=== PATIENT | female | born 1995 | race Caucasian/White ===

== ENCOUNTER → 2018-08-03 | Outpatient (REF) | payer OTHER | LOC: M LAB LCGH 15:10 | PROVIDERS: ATTEND Nurse Practitioner Adult Health | DX: Z12.4 Encounter for screening for malignant neoplasm of cervix (principal) ==

== ENCOUNTER 2021-04-07 18:43 | Emergency (ER) | payer OTHER, SELFPAY ==
[~2021-04-07] VITALS: Ht 170.2 cm; Wt 106.6 kg
[2021-04-07 18:46] VITALS: BP 166/94
[2021-04-07] MEDS ORDERED: VENL150C43 (19:30)
[2021-04-07] MEDS ORDERED: ESTA0.25 (19:30)
[2021-04-07] MEDS ORDERED: EFFE75CA2 PO (20:04)
--- OUTSIDE RECORDS SUMMARY | 2021-04-07 20:30 | CCD ---
Author Author Brandi Sena Organization [facility] Address Unknown Phone Unavailable Care Team Providers Care Mailing Section Clerk Name Role Phone Imani Sena PCP Unavailable Allergies, Adverse Reactions, Alerts Allergy Substance Code C odeSystem Reaction Severity Critic ality Status Start Date nkda Moderate Active Medications Medication Medication Code Medication CodeSystem Start Date Stop Date Route Dose Status Fill Instructions Vyvanse 689320 RxNorm 2015-10-29 2015-12-26 oral 40 mg capsule completed for 30 day(s) Lexapro 441500 RxNorm 2016-01-01 2017-10-11 oral 20 mg tablet completed for 30 day(s) Rexulti 8110173 RxNorm 2017-08-22 2017-09-29 oral 2 mg tablet completed buspirone 586036 RxNorm 2017-10-11 2017-10-27 oral 7.5 mg tablet completed for 30 day(s) Vyvanse 457973 RxNorm 2016-01-01 2016-02-29 oral 50 mg capsule completed for 30 day(s) Zoloft 180639 RxNorm 2018-09-26 2019-07-25 oral 25 mg tablet completed hydroxyzine HCl 681750 R xNorm 2019-01-02 2019-02-01 or al 10 mg tablet completed for 30 day(s) Effexor XR 425015 RxNorm 2019-10-05 2019-11-04 oral 150 mg capsule,extended release 24hr completed for 30 day(s) Vyvanse 209066 RxNorm 2016-06-30 2016-10-09 oral 40 mg capsule completed for 30 day(s) Effexor XR 858329 RxNorm 2019-11-01 2019-12-01 oral 37.5 mg capsule,extended release 24hr active for 30 day(s) Rexulti 4707920 RxNorm 2017-06-07 2017-06-21 oral 1 mg tablet completed Rexulti 0931625 RxNorm 2017-10-27 2017-11-03 oral 0.5 mg tablet completed for 7 day(s) Vyvanse 807077 RxNorm 2016-03-02 2016-03-11 oral 50 mg capsule completed for 30 day(s) Vyvanse 507657 RxNorm 2016-10-12 2016-12-10 oral 40 mg capsule completed for 30 day(s) Vyvanse 776442 RxNorm 2016-12-21 2017-03-14 oral 30 mg capsule completed for 30 day(s) Vyvanse 979042 RxNorm 2016-03-11 2016-05-07 oral 60 mg capsule completed for 30 day(s) Vyvanse 551344 RxNorm 2017-09-29 2017-10-27 oral 50 mg capsule completed for 30 day(s) hydroxyzine HCl 264410 R xNorm 2019-05-08 2019-06-07 or al 10 mg tablet completed for 30 day(s) Vyvanse 778052 RxNorm 2017-06-07 2017-08-12 oral 40 mg capsule completed for 30 day(s) Rexulti 9389751 RxNorm 2017-09-29 2017-10-27 oral 3 mg tablet completed hydroxyzine HCl 261090 R xNorm 2019-07-25 2019-08-24 or al 25 mg tablet completed for 30 day(s) Effexor XR 989154 RxNorm 2018-02-01 2018-02-16 oral 75 mg capsule,extended release 24hr completed for 15 day(s) Xanax 630636 RxNorm 2018-06-28 2018-07-28 oral 0.5 mg tablet completed for 30 day(s) Effexor XR 910460 RxNorm 2018-02-01 2018-04-12 oral 150 mg capsule,extended release 24hr completed alprazolam 712201 RxNorm 2018-02-01 2018-03-03 oral 0.5 mg tablet completed for 30 day(s) hydroxyzine HCl 327050 R xNorm 2019-04-05 2019-05-05 or al 10 mg tablet completed for 30 day(s) Vyvanse 602277 RxNorm 2016-05-07 2016-06-30 oral 50 mg capsule completed for 30 day(s) hydroxyzine HCl 466234 R xNorm 2018-10-31 2018-11-30 or al 10 mg tablet completed for 30 day(s) Effexor XR 982914 RxNorm 2019-11-12 2019-12-12 oral 150 mg capsule,extended release 24hr active for 30 day(s) Effexor XR 813778 RxNorm 2019-05-08 2019-06-07 oral 150 mg capsule,extended release 24hr completed for 30 day(s) Xanax 351450 RxNorm 2018-08-01 2018-08-31 oral 0.5 mg tablet completed for 30 day(s) Rexulti 4563774 RxNorm 2017-10-27 2017-11-03 oral 2 mg tablet completed for 7 day(s) Effexor XR 946246 RxNorm 2019-01-30 2019-03-01 oral 150 mg capsule,extended release 24hr completed for 30 day(s) hydroxyzine HCl 797930 R xNorm 2019-09-27 2019-11-26 or al 25 mg tablet completed for 30 day(s) Vyvanse 602525 RxNo 2017-03-14 2017-04-13 oral 40 mg capsule completed for 30 day(s) Effexor XR 734215 RxNorm 2019-03-01 2019-04-30 oral 150 mg capsule,extended release 24hr completed for 30 day(s) Xanax 306087 RxNorm 2017-10-27 2017-12-08 oral 1 mg tablet completed for 30 day(s) Rexulti 7662520 RxNorm 2017-06-21 2017-08-22 oral 1 mg tablet completed Xanax 303899 RxNorm 2017-12-08 2018-01-27 oral 0.5 mg tablet completed for 30 day(s) Effexor XR 362480 RxNorm 2019-08-27 2019-09-26 oral 37.5 mg capsule,extended release 24hr completed for 30 day(s) Effexor XR 910068 RxNorm 2019-09-27 2019-10-27 oral 37.5 mg capsule,extended release 24hr completed for 30 day(s) alprazolam 555354 RxNorm 2018-05-29 2018-06-08 oral 0.5 mg tablet completed for 10 day(s) Effexor XR 306945 RxNorm 2018-04-12 2019-01-29 oral 150 mg capsule,extended release 24hr completed Vyvanse 687208 RxNorm 2017-01-17 2017-01-17 oral 40 mg capsule completed for 30 day(s) Rexulti 8349924 RxNorm 2017-10-27 2017-11-03 oral 1 mg tablet completed for 7 day(s) Lexapro 937280 RxNorm 2015-10-29 2016-01-01 oral 20 mg 1 tablet once a day completed Take 1 tablet by mouth once a day for 30 day(s) Vyvanse 152124 RxNorm 2017-08-22 2017-09-21 oral 50 mg capsule completed for 30 day(s) alprazolam 191861 RxNorm 2018-09-01 2018-09-26 oral 0.5 mg tablet completed for 30 day(s) Effexor XR 860174 RxNorm 2017-10-27 2018-02-01 oral 37.5 mg capsule,extended release 24hr completed for 30 day(s) Effexor XR 249555 RxNorm 2019-06-07 2019-09-27 oral 150 mg capsule,extended release 24hr completed for 30 day(s) Problems Problem Name Code CodeSy stem Alternate Code Alternate CodeSystem Start Date End Date Status Narrative Other specified anxiety disorder [id number] SNOMED-CT 2015-10-07 Active Recurrent depressive disorder, current episode modera te [id number] SNOMED-CT 2015-10-07 Active Cannabis abuse, uncomplicated 472914900 SNOMED-CT 2015-10-07 Active Other eating disorders 62620220 SNOMED-CT 2015-10-31 Active Relevant diagnostic tests/laboratory data Narrative No Information Procedures Procedure Name Code Code System Target Site Date of Procedure Status Service Delivery Location Device Cod e Device Name Device UID Psychotherapy, 45 minutes with patient [id number] SNOMED-CT () 2015-10-[address], [id number] Psychotherapy, 45 minutes with patient [id number] SNOMED-CT () 2015-10-08 completed [facility] , , , Psychotherapy, 45 minutes with patient [id number] SNOMED-CT () 2015-10-15 completed [facility] , , , Psychotherapy, 45 minutes with patient [id number] SNOMED-CT () 2015-10-22 completed [facility] , , , Psychotherapy, 45 minutes with patient [id number] SNOMED-CT () 2015-12-03 completed [facility] , , , Psychotherapy, 45 minutes with patient [id number] SNOMED-CT () 2016-04-08 completed [facility] [address], [place], [id number] Psychotherapy, 45 minutes with patient [id number] SNOMED-CT () 2020-10-02 completed [facility] [address], [place], [id number] Psychotherapy, 45 minutes with patient [id number] SNOMED-CT () 2020-10-14 completed [facility] [address], [place], [id number] Psychotherapy, 45 minutes with patient [id number] SNOMED-CT () 2020-11-17 completed [facility] [address], [place], [id number] Psychotherapy, 45 minutes with patient [id number] SNOMED-CT () 2021-01-27 completed [facility] [address], [place], 556[address] [id number] Psychotherapy, 45 minutes with patient [id number] SNOMED-CT () 2021-02-24 completed [facility] [address], [place], [id number] [id number] Psychotherapy, 45 minutes with patient [id number] SNOMED-CT () 2020-03-12 completed [facility] [address], [place], [id number] [id number] Psychotherapy, 45 minutes with patient [id number] SNOMED-CT () 2020-04-07 completed [facility] [address], [place], [id number] [id number] Psychotherapy, 45 minutes with patient [id number] SNOMED-CT () 2020-05-12 completed [facility] [address], [place], 419878813 [id number] Psychotherapy, 45 minutes with patient [id number] SNOMED-CT () 2020-06-18 completed [facility] [address], [place], 673545824 [id number] Psychotherapy, 45 minutes with patient [id number] SNOMED-CT () 2020-07-15 completed [facility] [address], [place], [id number] Psychotherapy, 45 minutes with patient [id number] SNOMED-CT () 2020-08-12 completed [facility] [address], [place], 573518586 [id number] Psychotherapy, 45 minutes with patient [id number] SNOMED-CT () 2019-12-03 completed [facility] [address], [place], [id number] Psychotherapy, 45 minutes with patient [id number] SNOMED-CT () 2019-12-17 completed [facility] [address], [place], 443966141 [id number] Psychotherapy, 45 minutes with patient [id number] SNOMED-CT () 2019-12-31 completed [facility] [address], [place], 556896124 [id number] Psychotherapy, 45 minutes with patient [id number] SNOMED-CT () 2020-01-15 completed [facility] [address], [place], 731842358 [id number] Psychotherapy, 45 minutes with patient [id number] SNOMED-CT () 2020-01-28 completed [facility] [address], [place], 4782[address]12 [id number] Psychotherapy, 45 minutes with patient [id number] SNOMED-CT () 2020-02-19 completed [facility] [address], [place], 340976381 [id number] Psychotherapy, 45 minutes with patient [id number] SNOMED-CT () 2019-03-01 completed [facility] [address], [place], [id number] Psychotherapy, 45 minutes with patient [id number] SNOMED-CT () 2019-05-08 completed [facility] [address], [place], [id number] [id number] Psychotherapy, 45 minutes with patient [id number] SNOMED-CT () 2019-05-24 completed [facility] [address], [place], 003425275 [id number] Psychotherapy, 45 minutes with patient [id number] SNOMED-CT () 2019-09-18 completed [facility] [address], [place], 951025274 [id number] Psychotherapy, 45 minutes with patient [id number] SNOMED-CT () 2019-10-12 completed [facility] [address], [place], 343222425 [id number] Psychotherapy, 45 minutes with patient [id number] SNOMED-CT () 2019-10-22 completed [facility] [address], [place], 399019437 [phone] Psychotherapy, 45 minutes with patient [id number] SNOMED-CT () 2017-10-14 completed [facility] [address], [place], 879781116 [id number] Psychotherapy, 45 minutes with patient [id number] SNOMED-CT () 2017-10-28 completed [facility] [address], [place], 376916919 [id number] Psychotherapy, 45 minutes with patient [id number] SNOMED-CT () 2017-12-27 completed [facility] [address], [place], 983875553 [id number] Psychotherapy, 45 minutes with patient [id number] SNOMED-CT () 2018-02-13 completed [facility] [address], [place], 244404287 [id number] Psychotherapy, 45 minutes with patient [id number] SNOMED-CT () 2018-10-31 completed [facility] [address], [place], 792656775 [id number] Psychotherapy, 45 minutes with patient [id number] SNOMED-CT () 2018-12-29 completed [facility] [address], [place], 611244656 [id number] Psychotherapy, 45 minutes with patient [id number] SNOMED-CT () 2017-07-05 completed [facility] [address], [place], 099479195 [id number] Psychotherapy, 45 minutes with patient [id number] SNOMED-CT () 2017-08-24 completed [facility] [address], [place], 791388078 [id number] Psychotherapy, 45 minutes with patient [id number] SNOMED-CT () 2017-09-08 completed [facility] [address], [place], 212654575 [id number] Psychotherapy, 45 minutes with patient [id number] SNOMED-CT () 2017-09-23 completed [facility] [address], [place], 096865450 [id number] Psychotherapy, 45 minutes with patient [id number] SNOMED-CT () 2017-09-30 completed [facility] [address], [place], 450775573 [id number] Psychotherapy, 45 minutes with patient [id number] SNOMED-CT () 2017-10-11 completed [facility] [address], [place], 305341243 [id number] Psychotherapy, 45 minutes with patient [id number] SNOMED-CT () 2017-02-02 completed [facility] [address], [place], 632314389 [id number] Psychotherapy, 45 minutes with patient [id number] SNOMED-CT () 2017-02-28 completed [facility] [address], [place], 547749382 [id number] Psychotherapy, 45 minutes with patient [id number] SNOMED-CT () 2017-03-14 completed [facility] [address], [place], 671399595 [id number] Psychotherapy, 45 minutes with patient [id number] SNOMED-CT () 2017-03-28 completed [facility] [address], [place], 589629268 [phone] Psychotherapy, 45 minutes with patient [id number] SNOMED-CT () 2017-04-11 completed [facility] [address], [place], 049183584 [phone] Psychotherapy, 45 minutes with patient [id number] SNOMED-CT () 2017-06-21 completed [facility] [address], [place], 641715779 [phone] Psychotherapy, 45 minutes with patient [id number] SNOMED-CT () 2016-07-07 completed [facility] , , , Psychotherapy, 45 minutes with patient [id number] SNOMED-CT () 2016-07-21 completed [facility] , , , Psychotherapy, 45 minutes with patient [id number] SNOMED-CT () 2016-08-17 completed [facility] [address], [place], 448622279 [phone] Psychotherapy, 45 minutes with patient [id number] SNOMED-CT () 2016-08-31 completed [facility] [address] [place], [place], 588719546 [phone] Psychotherapy, 45 minutes with patient [id number] SNOMED-CT () 2016-10-08 completed [facility] [address], [place], 222465502 [phone] Psychotherapy, 45 minutes with patient [id number] SNOMED-CT () 2017-01-20 completed [facility] [address], [place], 821252627 [id number] Psychotherapy, 45 minutes with patient [id number] SNOMED-CT () 2016 completed [facility] [address] [place], [place], [id number] [id number] Psychotherapy, 45 minutes with patient [id number] SNOMED-CT () 2016-02-04 completed [facility] [address] [place], [place], 766828752 [phone] Psychotherapy, 45 minutes with patient [id number] SNOMED-CT () 2016-05-07 completed [facility] [address] [place] [address], [id number] [phone] Psychotherapy, 45 minutes with patient [id number] SNOMED-CT () 2016-06-23 completed [facility] [address] [place], [place], [id number] [id number] Psychotherapy, 45 minutes with patient [id number] SNOMED-CT () 2016-06-16 completed [facility] [address] [place], [place], 401777902 [phone] Psychotherapy, 45 minutes with patient [id number] SNOMED-CT () 2016-03-11 completed [facility] [address] [place], [place], 363275971 [id number] Initial Psychiatric Evaluation [id number] SNOMED-CT () 2015-10-29 completed [facility] [address] [place], [place], 025390988 [phone] Health Monitoring / Risk Reduction Counseling - Brief [id number] SNOMED-CT () 2018-10-[address], [id number] [id number] Health Monitoring / Risk Reduction Counseling - Interm ediate [id number] SNOMED-CT () 2015-10-[address], [id number] [id number] Est. Patient - E&M Intermediate [id number] SNOMED-CT () 2015-11-[address], [id number] [id number] Est. Patient - E&M Intermediate [id number] SNOMED-CT () 2016-01-[address], [id number] [phone] Est. Patient - E&M Intermediate [id number] SNOMED-CT () 2016-03-[address], [id number] [id number] Est. Patient - E&M Intermediate [id number] SNOMED-CT () 2016-04-[address], [id number] [phone] Est. Patient - E&M Intermediate [id number] SNOMED-CT () 2016-05-[address], [id number] [id number] Est. Patient - E&M Intermediate [id number] SNOMED-CT () 2016-06-[address], [id number] Est. Patient - E&M Intermediate [id number] SNOMED-CT () 2018-10-[address], [id number] [phone] Est. Patient - E&M Intermediate [id number] SNOMED-CT () 2018-12-[address], [id number] [id number] Est. Patient - E&M Intermediate [id number] SNOMED-CT () 2019-03-[address], [id number] [id number] Est. Patient - E&M Intermediate [id number] SNOMED-CT () 2019-04-[address], [id number] [id number] Est. Patient - E&M Intermediate [id number] SNOMED-CT () 2017-03-[address], [id number] Est. Patient - E&M Intermediate [id number] SNOMED-CT () 2017-06-[address], [id number] [id number] Est. Patient - E&M Intermediate [id number] SNOMED-CT () 2017-06-[address], [id number] [phone] Est. Patient - E&M Intermediate [id number] SNOMED-CT () 2017-09-[address], [phone] Est. Patient - E&M Intermediate [id number] SNOMED-CT () 2017-12-[address], [id number] [id number] Est. Patient - E&M Intermediate [id number] SNOMED-CT () 2018-04-[address], [id number] Est. Patient - E&M Intermediate [id number] SNOMED-CT () 2016-07-[address], [id number] Est. Patient - E&M Intermediate [id number] SNOMED-CT () 2016-09-[address], [id number] [id number] Est. Patient - E&M Intermediate [id number] SNOMED-CT () 2016-10-[address], [id number] [phone] Est. Patient - E&M Intermediate [id number] SNOMED-CT () 2016-11-[address], [id number] [phone] Est. Patient - E&M Intermediate [id number] SNOMED-CT () 2016-12-[address], [id number] [id number] Est. Patient - E&M Intermediate [id number] SNOMED-CT () 2017-02-[address], [id number] [id number] Est. Patient - E&M Brief [id number] SNOMED-CT () 2016-06-[address], [id number] [phone] Est. Patient - E&M Brief [id number] SNOMED-CT () 2018-09-[address], [id number] [phone] Est. Patient - E&M Brief [id number] SNOMED-CT () 2019-01-[address], [id number] [id number] Est. Patient - E&M Brief [id number] SNOMED-CT () 2019-01-[address], [id number] [phone] Est. Patient - E&M Brief [id number] SNOMED-CT () 2019-05-[address], [id number] [id number] Est. Patient - E&M Brief [id number] SNOMED-CT () 2019-07-[address], [id number] [id number] Est. Patient - E&M Brief [id number] SNOMED-CT () 2019-08-[address], [id number] [phone] Est. Patient - E&M Brief [id number] SNOMED-CT () 2019-10-[address], [id number] [phone] Est. Patient - E&M Brief [id number] SNOMED-CT () 2019-12-[address], [id number] Est. Patient - E&M Brief [id number] SNOMED-CT () 2020-04-[address], [id number] [phone] Est. Patient - E&M Expanded [id number] SNOMED-CT () 2017-08-[address], [id number] [phone] Est. Patient - E&M Expanded [id number] SNOMED-CT () 2017-10-[address], [id number] [phone] Est. Patient - E&M Expanded [id number] SNOMED-CT () 2017-10-[address], [id number] [phone] Est. Patient - E&M Expanded [id number] SNOMED-CT () 2018-02-[address], [id number] [phone] Est. Patient - E&M Expanded [id number] SNOMED-CT () 2018-06-[address], [id number] [phone] Est. Patient - E&M Expanded [id number] SNOMED-CT () 2018-08-[address], [id number] [id number] Est. Patient - E&M Expanded [id number] SNOMED-CT () 2020-07-[address], [id number] [phone] Est. Patient - E&M Expanded [id number] SNOMED-CT () 2020-09-[address], [id number] [phone] Individual Psychotherapy [id number] SNOMED-CT () 2016-02-[address], [id number] [id number] Individual Psychotherapy [id number] SNOMED-CT () 2016-05-[address], [id number] [phone] Individual Psychotherapy [id number] SNOMED-CT () 2017-06-[address], [id number] [id number] Individual Psychotherapy [id number] SNOMED-CT () 2017-10-[address], [id number] [id number] Individual Psychotherapy [id number] SNOMED-CT () 2017-11-[address], [id number] [phone] Individual Psychotherapy [id number] SNOMED-CT () 2018-01-[address], [id number] [id number] Individual Psychotherapy [id number] SNOMED-CT () 2019-11-[address], [id number] [id number] Individual Psychotherapy [id number] SNOMED-CT () 2018-06-[address], [id number] [id number] Individual Psychotherapy [id number] SNOMED-CT () 2018-06-[address], [id number] [id number] Individual Psychotherapy [id number] SNOMED-CT () 2018-09-[address], [id number] [id number] Individual Psychotherapy [id number] SNOMED-CT () 2019-01-[address], [id number] [phone] Individual Psychotherapy [id number] SNOMED-CT () 2019-04-[address], [id number] [phone] Individual Psychotherapy [id number] SNOMED-CT () 2019-04-[address], [id number] [phone] Individual Psychotherapy [id number] SNOMED-CT () 2015-10-[address], [id number] [phone] Individual Psychotherapy [id number] SNOMED-CT () 2015-10-08 completed [facility] , , , Individual Psychotherapy [id number] SNOMED-CT () 2015-10-15 completed [facility] , , , Individual Psychotherapy [id number] SNOMED-CT () 2015-10-22 completed [facility] , , , Individual Psychotherapy [id number] SNOMED-CT () 2015-12-03 completed [facility] , , , Individual Psychotherapy [id number] SNOMED-CT () 2016-04-[address], [id number] [phone] Individual Psychotherapy [id number] SNOMED-CT () 2020-10-[address], [id number] [id number] Individual Psychotherapy [id number] SNOMED-CT () 2020-10-[address], [id number] [id number] Individual Psychotherapy [id number] SNOMED-CT () 2020-11-[address], [id number] [phone] Individual Psychotherapy [id number] SNOMED-CT () 2021-01-[address], [id number] [id number] Individual Psychotherapy [id number] SNOMED-CT () 2021-02-[address], [id number] Individual Psychotherapy [id number] SNOMED-CT () 2020-03-[address], [id number] Individual Psychotherapy [id number] SNOMED-CT () 2020-04-[address], [id number] [id number] Individual Psychotherapy [id number] SNOMED-CT () 2020-05-[address], [id number] [phone] Individual Psychotherapy [id number] SNOMED-CT () 2020-06-[address], [id number] [phone] Individual Psychotherapy [id number] SNOMED-CT () 2020-07-[address], [id number] [phone] Individual Psychotherapy [id number] SNOMED-CT () 2020-08-[address], [id number] [id number] Individual Psychotherapy [id number] SNOMED-CT () 2019-12-[address], [id number] [id number] Individual Psychotherapy [id number] SNOMED-CT () 2019-12-[address], [id number] [phone] Individual Psychotherapy [id number] SNOMED-CT () 2019-12-[address], [id number] Individual Psychotherapy [id number] SNOMED-CT () 2020-01-[address], [id number] [id number] Individual Psychotherapy [id number] SNOMED-CT () 2020-01-[address], [id number] [phone] Individual Psychotherapy [id number] SNOMED-CT () 2020-02-[address], [id number] [id number] Individual Psychotherapy [id number] SNOMED-CT () 2019-03-[address], [id number] [id number] Individual Psychotherapy [id number] SNOMED-CT () 2019-05-[address], [id number] Individual Psychotherapy [id number] SNOMED-CT () 2019-05-[address], [id number] [phone] Individual Psychotherapy [id number] SNOMED-CT () 2019-09-[address], [id number] [id number] Individual Psychotherapy [id number] SNOMED-CT () 2019-10-[address], [id number] [id number] Individual Psychotherapy [id number] SNOMED-CT () 2019-10-[address], [id number] [id number] Individual Psychotherapy [id number] SNOMED-CT () 2017-10-[address], [id number] [phone] Individual Psychotherapy [id number] SNOMED-CT () 2017-10-[address], [id number] [id number] Individual Psychotherapy [id number] SNOMED-CT () 2017-12-[address], [id number] Individual Psychotherapy [id number] SNOMED-CT () 2018-02-[address], [id number] Individual Psychotherapy [id number] SNOMED-CT () 2018-10-[address], [id number] [id number] Individual Psychotherapy [id number] SNOMED-CT () 2018-12-[address], [id number] [id number] Individual Psychotherapy [id number] SNOMED-CT () 2017-07-[address], [id number] [id number] Individual Psychotherapy [id number] SNOMED-CT () 2017-08-[address], [id number] [id number] Individual Psychotherapy [id number] SNOMED-CT () 2017-09-[address], [id number] [phone] Individual Psychotherapy [id number] SNOMED-CT () 2017-09-[address], [id number] [id number] Individual Psychotherapy [id number] SNOMED-CT () 2017-09-[address], [id number] [phone] Individual Psychotherapy [id number] SNOMED-CT () 2017-10-[address], [id number] Individual Psychotherapy [id number] SNOMED-CT () 2017-02-[address], [id number] Individual Psychotherapy [id number] SNOMED-CT () 2017-02-[address], [id number] Individual Psychotherapy [id number] SNOMED-CT () 2017-03-[address], [id number] Individual Psychotherapy [id number] SNOMED-CT () 2017-03-[address], [id number] Individual Psychotherapy [id number] SNOMED-CT () 2017-04-[address], [id number] Individual Psychotherapy [id number] SNOMED-CT () 2017-06-[address], [id number] Individual Psychotherapy [id number] SNOMED-CT () 2016-07-07 completed [facility] , , , Individual Psychotherapy [id number] SNOMED-CT () 2016-07-21 completed [facility] , , , Individual Psychotherapy [id number] SNOMED-CT () 2016-08-[address], [id number] Individual Psychotherapy [id number] SNOMED-CT () 2016-08-[address], [id number] Individual Psychotherapy [id number] SNOMED-CT () 2016-10-[address], [id number] Individual Psychotherapy [id number] SNOMED-CT () 2017-01-[address], [id number] Individual Psychotherapy [id number] SNOMED-CT () [address], [id number] Individual Psychotherapy [id number] SNOMED-CT () 2016-02-[address], [id number] Individual Psychotherapy [id number] SNOMED-CT () 2016-05-[address], [id number] Individual Psychotherapy [id number] SNOMED-CT () 2016-06-[address], [id number] Individual Psychotherapy [id number] SNOMED-CT () 2016-06-[address], [id number] Individual Psychotherapy [id number] SNOMED-CT () 2016-03-[address], [id number] Psychiatric Diagnostic Evaluation without medical serv ices [id number] SNOMED-CT () 2015-09-[address], [id number] SNOMED-CT () 2017-05-[address], [id number] SNOMED-CT () 2016-04-[address], [id number] SNOMED-CT () 2017-09-[address], [id number] SNOMED-CT () 2018-12-[address], [id number] SNOMED-CT () 2020-01-[address], [id number] Encounters/Encounter Diagnoses Encounter Name Encounter Code Diagnosis Code Diagnosis Name Diagnosis CodeSystem Date of Diagnosis Service Delivery L ocation Telehealth Physchotherapy 30 Minutes with Patient 58855 SNOMED-CT 2021-02-24 [facility] [address] [place] [address], [id number] Telehealth Physchotherapy 30 Minutes with Patient [id number] Recurrent depressive disor lilly, current episode moderate SNOMED-CT 2021-02-24 [facility] [address] [place] [address], [id number] Telehealth Physchotherapy 30 Minutes with Patient [id number] Recurrent depressive disor lilly, current episode moderate SNOMED-CT 2021-02-24 [facility] [address] [place] [address], [id number] Telehealth Physchotherapy 30 Minutes with Patient 02357 SNOMED-CT 2021-02-24 [facility] [address] [place] [address], [id number] Vital Signs Code CodeSystem Vitals Date Value 8480-6 [facility] Blood Press ure-Systolic 2018-02-01 86 mm[HG] 99149-4 LOINC BMI 2018-02-01 40.34 (lb/in2) 8462-4 [facility] Blood Press ure-Diastolic 2018-02-01 118 mm[HG] 8867-4 [facility] Heart Rate 2018-02-01 113 /min 24063-9 [facility] Weight 2018-02-01 257.6 [lb_av] 8302-2 [facility] Height 2018-02-01 67 [in_i] Social History Element Description Description Start Date End Date Code CodeSystem AdditionalInfo SexAssignedAtBirth Female 1995 F Administrative[facility] Discharge Instructions * Reason For Referral Medical Equipment * FDA Assessments * Goals Section Goals Planned DateTime Brandi will report an improved mood. 2015-10-08 Brandi will increase health awareness an d make healthy lifestyle choices. 2017-05-03
--- OUTSIDE RECORDS SUMMARY | 2021-04-07 20:31 | CCD ---
Author Author [facility] Address Unknown Phone Unavailable Care Team Providers Care Macerator Operator Name Role Phone Ruperto, Emily Nielsen DO Unavailable Unavailable Birchenough, R Gia DO Unavailable Unavailable Birchenough, R Gia DO Unavailable Unavailable Birchenough, R Gia DO Unavailable Unavailable Birchenough, R Gia DO Unavailable Unavailable Birchenough, R Gia DO Unavailable Unavailable Birchenough, R Gia DO Unavailable Unavailable Birchenough, R Gia DO Unavailable Unavailable Birchenough, R Gia DO Unavailable Unavailable Birchenough, R Gia DO Unavailable Unavailable Birchenough, R Gia DO Unavailable Unavailable Birchenough, R Gia DO Unavailable Unavailable Birchenough, R Gia DO Unavailable Unavailable Birchenough, R Gia DO Unavailable Unavailable Birchenough, R Gia DO Unavailable Unavailable Birchenough, R Gia DO Unavailable Unavailable Birchenough, R Gia DO Unavailable Unavailable Birchenough, R Gia DO Unavailable Unavailable Birchenough, R Gia DO Unavailable Unavailable Doctor Provided, Family PHYS No Family Unavailable U navailable Jamar Contreras ADMISSIONS ASSISTANT Unavailable Unavailable Diane, A Lucy ADMISSIONS ASSISTANT Unavailable Unavailable Diane, A Lucy ADMISSIONS ASSISTANT Unavailable Unavailable Diane, A Lucy ADMISSIONS ASSISTANT Unavailable Unavailable Diane, A Lucy ADMISSIONS ASSISTANT Unavailable Unavailable Diane, A Lucy ADMISSIONS ASSISTANT Unavailable Unavailable Diane, A Lucy ADMISSIONS ASSISTANT Unavailable Unavailable Diane, A Lucy ADMISSIONS ASSISTANT Unavailable Unavailable Diane, A Lucy ADMISSIONS ASSISTANT Unavailable Unavailable Diane, A Lucy ADMISSIONS ASSISTANT Unavailable Unavailable Diane, A Lucy ADMISSIONS ASSISTANT Unavailable Unavailable Diane, A Lucy ADMISSIONS ASSISTANT Unavailable Unavailable Diane, A Lucy ADMISSIONS ASSISTANT Unavailable Unavailable Diane, A Lucy ADMISSIONS ASSISTANT Unavailable Unavailable Diane, A Lucy ADMISSIONS ASSISTANT Unavailable Unavailable Diane, A Lucy ADMISSIONS ASSISTANT Unavailable Unavailable Diane, A Lucy ADMISSIONS ASSISTANT Unavailable Unavailable Diane, A Lucy ADMISSIONS ASSISTANT Unavailable Unavailable Diane, A Lucy ADMISSIONS ASSISTANT Unavailable Unavailable Diane, A Lucy ADMISSIONS ASSISTANT Unavailable Unavailable Diane, A Lucy ADMISSIONS ASSISTANT Unavailable Unavailable Diane, A Lucy ADMISSIONS ASSISTANT Unavailable Unavailable Diane, A Lucy ADMISSIONS ASSISTANT Unavailable Unavailable Diane, A Lucy ADMISSIONS ASSISTANT Unavailable Unavailable Diane, A Lucy ADMISSIONS ASSISTANT Unavailable Unavailable Diane, A Lucy ADMISSIONS ASSISTANT Unavailable Unavailable Diane, A Lucy ADMISSIONS ASSISTANT Unavailable Unavailable Diane, A Lucy ADMISSIONS ASSISTANT Unavailable Unavailable Diane, A Lucy ADMISSIONS ASSISTANT Unavailable Unavailable Diane, A Lucy ADMISSIONS ASSISTANT Unavailable Unavailable Diane, A Lucy ADMISSIONS ASSISTANT Unavailable Unavailable Diane, A Lucy ADMISSIONS ASSISTANT Unavailable Unavailable Diane, A Lucy ADMISSIONS ASSISTANT Unavailable Unavailable Diane, A Lucy ADMISSIONS ASSISTANT Unavailable Unavailable Diane, A Lucy ADMISSIONS ASSISTANT Unavailable Unavailable Diane, A Lucy ADMISSIONS ASSISTANT Unavailable Unavailable Diane, A Lucy ADMISSIONS ASSISTANT Unavailable Unavailable Diane, A Lucy ADMISSIONS ASSISTANT Unavailable Unavailable Diane, A Lucy ADMISSIONS ASSISTANT Unavailable Unavailable Diane, A Lucy ADMISSIONS ASSISTANT Unavailable Unavailable Diane, A Lucy ADMISSIONS ASSISTANT Unavailable Unavailable Diane, A Lucy ADMISSIONS ASSISTANT Unavailable Unavailable Diane, A Lucy ADMISSIONS ASSISTANT Unavailable Unavailable Diane, A Lucy ADMISSIONS ASSISTANT Unavailable Unavailable Diane, A Lucy ADMISSIONS ASSISTANT Unavailable Unavailable Diane, A Lucy ADMISSIONS ASSISTANT Unavailable Unavailable Diane, A Lucy ADMISSIONS ASSISTANT Unavailable Unavailable Diane, A Lucy ADMISSIONS ASSISTANT Unavailable Unavailable Diane, A Lucy ADMISSIONS ASSISTANT Unavailable Unavailable Re-disclosure Warning The records that you are about to access may contain information from federally-assisted alcohol or drug abuse programs. If such information is present, then the following federally mandated warning applies: This information has been disclosed to you from records protected by federal confidentiality rules (42 CFR part 2). The federal rules prohibit you from making any further disclosure of this information unless further disclosure is expressly permitted by the written consent of the person to whom it pertains or as otherwise permitted by 42 CFR part 2. A general authorization for the release of medical or other information is NOT sufficient for this purpose. The Federal rules restrict any use of the information to criminally investigate or prosecute any alcohol or drug abuse patient.The records that you are about to access may contain highly sensitive health information, the redisclosure of which is protected by Article 27-F of the [facility] Public Health law. If you continue you may have access to information: Regarding HIV / AIDS; Provided by facilities licensed or operated by the [facility] Office of Mental Health; or Provided by the [facility] Office for People With Developmental Disabilities. If such information is present, then the following [facility] mandated warning applies: This information has been disclosed to you from confidential records which are protected by state law. State law prohibits you from making any further disclosure of this information without the specific written consent of the person to whom it pertains, or as otherwise permitted by law. Any unauthorized further disclosure in violation of state law may result in a fine or alf sentence or both. A general authorization for the release of medical or other information is NOT sufficient authorization for further disc losure. Family History Family Member Name Family Member Gender Family Member Status Date o f Status Description Data Source(s) Unknown Condition [facility] Unknown Condition [facility] Unknown Condition [facility] Unknown Condition [facility] Unknown Condition [facility] Unknown Condition [facility] Unknown Condition [facility] Unknown Condition [facility] Encounters Encounter Providers Location Date Indications Data Source(s ) [facility] 02/24/2021 12:00:00 AM EDT [facility]) Telehealth Physchotherapy [facility] 02/24/2021 12:00:00 AM EDT [facility] 02/24/2021 12:00:00 AM EDT [facility] ([facility]) Telehealth Phys[facility]otherapy [facility] 02/24/2021 12:00:00 AM EDT [facility] ([facility]) Pyschotherapy [facility] Minute [facility] 10/14/2020 12:00:00 AM EDT [facility] ([facility]) Pyschotherapy [facility] 10/14/2020 12:00:00 AM EDT [facility] ([facility]) Pyschotherapy [facility] 10/14/2020 12:00:00 AM EDT [facility] ([facility]) Pyschotherapy [facility] 10/14/2020 12:00:00 AM EDT [facility] ([facility]) Outpatient Attender: Gia Maguire: Lucy flannery ADMISSIONS ASSISTANT 10/07/2020 01:04:00 PM EDT - 10/07/2020 01:54:00 PM EDT [facility] Telehealth Physchotherapy [facility] 10/02/2020 12:00:00 AM EDT [facility] ([facility]) Telehealth Physchotherapy [facility] 10/02/2020 12:00:00 AM EDT [facility] ([facility]) Telehealth Physchotherapy [facility] 10/02/2020 12:00:00 AM EDT [facility] ([facility]) Telehealth Physchotherapy [facility] 10/02/2020 12:00:00 AM EDT [facility] ([facility]) Outpatient Attender: Gia Maguire: No Famil y Doctor Provided 02/12/2020 08:15:00 AM EDT - 02/12/2020 08:54:00 AM EDT [facility] Immunizations Vaccine Date Status Description Data Source(s) COVID-19 VACCINE Moderna 06/10/2020 12:00:00 AM EST completed [facility] Vaccine Series Complete: YESThis Data wa s Submitted to [facility] Via [facility]. COVID-19 VACCINE Moderna 05/13/2020 12:00:00 AM EST completed [facility] Vaccine Series Complete: NOThis Data was Submitted to [facility] Via [facility]. Medications Medication Brand Name Start Date Product Form Dose Route Admi nistrative Instructions Pharmacy Instructions Status Indications Reaction Description Data Source(s) 150 mg 12/25/2020 12:00:00 AM EDT capsule,extended releas e 24hr 30 TAKE ONE CAPSULE BY MOUTH EVERY DAY TAKE ONE CAPSULE BY MOUTH EVERY DAY SOLD: 12/26/2020 [facility] 24 HR venlafaxine 75 MG Extended Release Oral Capsule Venlaf axine Venlafaxine 10/07/2020 01:26:31 PM EDT completed [facility] 150 mg 09/08/2020 12:00:00 AM EDT capsule,extended releas e 24hr 30 TAKE ONE CAPSULE BY MOUTH EVERY MORNING TAKE ONE CAPSULE BY MOUTH EVERY MORNING SOLD: 09/09/2020 [facility] 150 mg 09/08/2020 12:00:00 AM EDT capsule,extended releas e 24hr 30 TAKE ONE CAPSULE BY MOUTH EVERY MORNING TAKE ONE CAPSULE BY MOUTH EVERY MORNING SOLD: 10/16/2020 [facility] 150 mg 09/08/2020 12:00:00 AM EDT capsule,extended releas e 24hr 30 TAKE ONE CAPSULE BY MOUTH EVERY MORNING TAKE ONE CAPSULE BY MOUTH EVERY MORNING SOLD: 11/17/2020 [facility] 10 mg 07/01/2020 12:00:00 AM EST tablet 60 TAKE ONE TO TWO TABLETS BY MOUTH AT BEDTIME NEEDED FOR INSOMNIA TAKE ONE TO TWO TABLETS BY MOUTH AT BEDT FROYLAN NEEDED FOR INSOMNIA SOLD: 07/08/2020 [facility] 150 mg 05/28/2020 12:00:00 AM EST capsule,extended releas e 24hr 30 TAKE ONE CAPSULE BY MOUTH EVERY MORNING TAKE ONE CAPSULE BY MOUTH EVERY MORNING SOLD: 06/29/2020 [facility] 150 mg 05/28/2020 12:00:00 AM EST capsule,extended releas e 24hr 30 TAKE ONE CAPSULE BY MOUTH EVERY MORNING TAKE ONE CAPSULE BY MOUTH EVERY MORNING SOLD: 07/31/2020 [facility] 150 mg 05/28/2020 12:00:00 AM EST capsule,extended releas e 24hr 30 TAKE ONE CAPSULE BY MOUTH EVERY MORNING TAKE ONE CAPSULE BY MOUTH EVERY MORNING SOLD: 05/29/2020 [facility] 75 mg 02/18/2020 12:00:00 AM EDT capsule,extended releas e 24hr 30 TAKE ONE CAPSULE BY MOUTH EVERY DAY TAKE ONE CAPSULE BY MOUTH EVERY DAY SOLD: 02/19/2020 [facility] 150 mg 02/18/2020 12:00:00 AM EDT capsule,extended releas e 24hr 30 TAKE ONE CAPSULE BY MOUTH EVERY MORNING TAKE ONE CAPSULE BY MOUTH EVERY MORNING SOLD: 02/19/2020 [facility] 75 mg 02/18/2020 12:00:00 AM EDT capsule,extended releas e 24hr 30 TAKE ONE CAPSULE BY MOUTH EVERY DAY TAKE ONE CAPSULE BY MOUTH EVERY DAY SOLD: 03/24/2020 [facility] 150 mg 02/18/2020 12:00:00 AM EDT capsule,extended releas e 24hr 30 TAKE ONE CAPSULE BY MOUTH EVERY MORNING TAKE ONE CAPSULE BY MOUTH EVERY MORNING SOLD: 03/24/2020 [facility] 150 mg 02/18/2020 12:00:00 AM EDT capsule,extended releas e 24hr 30 TAKE ONE CAPSULE BY MOUTH EVERY MORNING TAKE ONE CAPSULE BY MOUTH EVERY MORNING SOLD: 04/21/2020 [facility] 75 mg 02/18/2020 12:00:00 AM EDT capsule,extended releas e 24hr 30 TAKE ONE CAPSULE BY MOUTH EVERY DAY TAKE ONE CAPSULE BY MOUTH EVERY DAY SOLD: 05/29/2020 [facility] Norgestimate-Ethinyl Estradiol ([place]-Linyah) 0.25-35 mg-mcg tablet 02/12/2020 08:53:14 AM EDT [address] [facility] Hydroxyzine Hydrochloride 10 MG Oral Tablet Hydroxyzine Hcl Hydroxyzine Hcl 02/12/2020 08:23:40 AM EDT 10 MG completed [facility] Hydroxyzine Hydrochloride 10 MG Oral Tablet Hydroxyzine Hcl Hydroxyzine Hcl 02/12/2020 08:23:40 AM EDT 10 MG [facility] 0.25-35 mg-mcg 02/12/2020 12:00:00 AM EDT tablet 84 TAKE ONE TABLET BY MOUTH EVERY DAY FOR PMDD . SKIP PLACEBO WEEK FOR CONTINUOUS USE TAKE ONE TABLET BY MOUTH EVERY DAY FOR PMDD . SKIP PLACEBO WEEK FOR CONTINUOUS USE SOLD: 06/29/2020 [facility] 0.25-35 mg-mcg 02/12/2020 12:00:00 AM EDT tablet 84 TAKE ONE TABLET BY MOUTH EVERY DAY FOR PMDD . SKIP PLACEBO WEEK FOR CONTINUOUS USE TAKE ONE TABLET BY MOUTH EVERY DAY FOR PMDD . SKIP PLACEBO WEEK FOR CONTINUOUS USE SOLD: 02/12/2020 [facility] 0.25-35 mg-mcg 02/12/2020 12:00:00 AM EDT tablet 84 TAKE ONE TABLET BY MOUTH EVERY DAY FOR PMDD . SKIP PLACEBO WEEK FOR CONTINUOUS USE TAKE ONE TABLET BY MOUTH EVERY DAY FOR PMDD . SKIP PLACEBO WEEK FOR CONTINUOUS USE SOLD: 12/26/2020 [facility] 0.25-35 mg-mcg 02/12/2020 12:00:00 AM EDT tablet 84 TAKE ONE TABLET BY MOUTH EVERY DAY FOR PMDD . SKIP PLACEBO WEEK FOR CONTINUOUS USE TAKE ONE TABLET BY MOUTH EVERY DAY FOR PMDD . SKIP PLACEBO WEEK FOR CONTINUOUS USE SOLD: 04/21/2020 [facility] 0.25-35 mg-mcg 02/12/2020 12:00:00 AM EDT tablet 84 TAKE ONE TABLET BY MOUTH EVERY DAY FOR PMDD . SKIP PLACEBO WEEK FOR CONTINUOUS USE TAKE ONE TABLET BY MOUTH EVERY DAY FOR PMDD . SKIP PLACEBO WEEK FOR CONTINUOUS USE SOLD: 10/16/2020 [facility] Norgestimate-Ethinyl Estradiol (Tri-Liny ah) 0.18/0.215/0.25 mg-35 mcg (28) tablet 10/03/2019 03:33:27 PM EDT 1 TAB completed [facility] 24 HR venlafaxine 37.5 MG Extended Relea se Oral Capsule Venlafaxine (Effexor Xr) 37.5 mg capsule,extended release 24hr Venlafaxine (Effexor Xr) 37.5 mg capsule,extended release 24hr 10/03/2019 03:11:41 PM EDT 37.5 MG completed [facility] 25 mg 09/28/2019 12:00:00 AM EDT tablet 60 TAKE ONE TO TWO TABLETS BY MOUTH EVERY DAY AT BEDTIME FOR INSOMNIA TAKE ONE TO TWO TABLETS BY MOUTH EVERY D AY AT BEDTIME FOR INSOMNIA SOLD: 02/27/2020 [facility] 24 HR venlafaxine 150 MG Extended Releas e Oral Capsule Venlafaxine (Effexor Xr) 150 MG capsule,extended release 24hr Venlafaxine (Effexor Xr) 150 MG capsule,extended release 24hr 05/01/2018 12:09:00 PM EST 150 MG completed [facility] Insurance Providers Payer name Policy type / Coverage type Policy ID Covered democrat ID Covered democrat's relationship to alarcon Policy Alarcon Plan Information SELF PAY ONLY [id number] UMR [facility] [id number] [employer] Other 0 [id number] Family Dependent [facility]id[facility] er 0 [employer] [id number] Family Dependent [id number] [employer] Other 0 [id number] Family Dependent Clint Fidl er 0 [employer] Other 0 [id number] Family Dependent Clint [facility]idl er 0 [employer] Other 0 [id number] Family Dependent [facility]l er 0 [employer] [id number] Family Dependent [id number] Problems, Conditions, and Diagnoses No Information Surgeries/Procedures Procedure Description Date Indications Data Source(s) Individual psychotherapy (regime/therapy) 02/24/2021 1 2:00:00 AM EDT [facility]) Individual psychotherapy (regime/therapy) 02/24/2021 1 2:00:00 AM EDT [facility]) Individual psychotherapy (regime/therapy) 01/27/2021 1 2:00:00 AM EDT [facility]) Individual psychotherapy (regime/therapy) 01/27/2021 1 2:00:00 AM EDT [facility]) Individual psychotherapy (regime/therapy) 11/17/2020 1 2:00:00 AM EDT [facility]) Individual psychotherapy (regime/therapy) 11/17/2020 1 2:00:00 AM EDT [facility]) Individual psychotherapy (regime/therapy) 10/14/2020 1 2:00:00 AM EDT [facility]) Individual psychotherapy (regime/therapy) 10/14/2020 1 2:00:00 AM EDT [facility]) Individual psychotherapy (regime/therapy) 10/14/2020 1 2:00:00 AM EDT [facility] ([facility]) Individual psychotherapy (regime/therapy) 10/14/2020 1 2:00:00 AM EDT [facility] ([facility]) Individual psychotherapy (regime/therapy) 10/02/2020 1 2:00:00 AM EDT [facility] ([facility]) Individual psychotherapy (regime/therapy) 10/02/2020 1 2:00:00 AM EDT [facility] ([facility]) Individual psychotherapy (regime/therapy) 10/02/2020 1 2:00:00 AM EDT [facility]) Individual psychotherapy (regime/therapy) 10/02/2020 1 2:00:00 AM [facility]) Individual psychotherapy (regime/therapy) 10/02/2020 1 2:00:00 AM EDT [facility]) Individual psychotherapy (regime/therapy) 10/02/2020 1 2:00:00 AM EDT [facility] ([facility]) Evaluation AND/OR management - established patient (procedur e) 09/30/2020 12:00:00 AM EDT [facility]) Evaluation AND/OR management - established patient (procedur e) 09/30/2020 12:00:00 AM EDT [facility]) Evaluation AND/OR management - established patient (procedur e) 09/30/2020 12:00:00 AM EDT [facility]) Individual psychotherapy (regime/therapy) 08/12/2020 1 2:00:00 AM EDT [facility] ([facility]) Individual psychotherapy (regime/therapy) 08/12/2020 1 2:00:00 AM [facility]) Individual psychotherapy (regime/therapy) 08/12/2020 1 2:00:00 AM EDT [facility]) Individual psychotherapy (regime/therapy) 08/12/2020 1 2:00:00 AM EDT [facility] ([facility]) Individual psychotherapy (regime/therapy) 08/12/2020 1 2:00:00 AM EDT [facility] ([facility]) Individual psychotherapy (regime/therapy) 08/12/2020 1 2:00:00 AM EDT [facility] ([facility]) Individual psychotherapy (regime/therapy) 07/15/2020 1 2:00:00 AM EDT [facility] ([facility]) Individual psychotherapy (regime/therapy) 07/15/2020 1 2:00:00 AM EDT [facility] ([facility]) Individual psychotherapy (regime/therapy) 07/15/2020 1 2:00:00 AM EDT [facility] ([facility]) Individual psychotherapy (regime/therapy) 07/15/2020 1 2:00:00 AM EDT [facility] ([facility]) Individual psychotherapy (regime/therapy) 07/15/2020 1 2:00:00 AM EDT [facility] ([facility]) Individual psychotherapy (regime/therapy) 07/15/2020 1 2:00:00 AM EDT [facility] ([facility]) Evaluation AND/OR management - established patient (procedur e) 07/01/2020 12:00:00 AM EST [facility] ([facility]) Evaluation AND/OR management - established patient (procedur e) 07/01/2020 12:00:00 AM EST [facility] ([facility]) Evaluation AND/OR management - established patient (procedur e) 07/01/2020 12:00:00 AM EST [facility] ([facility]) Individual psychotherapy (regime/therapy) 06/18/2020 1 2:00:00 AM EST [facility] ([facility]) Individual psychotherapy (regime/therapy) 06/18/2020 1 2:00:00 AM EST [facility] ([facility]) Individual psychotherapy (regime/therapy) 06/18/2020 1 2:00:00 AM EST [facility] ([facility]) Individual psychotherapy (regime/therapy) 06/18/2020 1 2:00:00 AM EST [facility] ([facility]) Individual psychotherapy (regime/therapy) 06/18/2020 1 2:00:00 AM EST [facility] ([facility]) Individual psychotherapy (regime/therapy) 06/18/2020 1 2:00:00 AM EST [facility] ([facility]) Individual psychotherapy (regime/therapy) 05/12/2020 1 2:00:00 AM EST [facility] ([facility]) Individual psychotherapy (regime/therapy) 05/12/2020 1 2:00:00 AM EST [facility] ([facility]) Individual psychotherapy (regime/therapy) 05/12/2020 1 2:00:00 AM EST [facility] ([facility]) Individual psychotherapy (regime/therapy) 05/12/2020 1 2:00:00 AM EST [facility] ([facility]) Individual psychotherapy (regime/therapy) 05/12/2020 1 2:00:00 AM EST [facility] ([facility]) Individual psychotherapy (regime/therapy) 05/12/2020 1 2:00:00 AM EST [facility] ([facility]) Individual psychotherapy (regime/therapy) 04/07/2020 1 2:00:00 AM EST [facility] ([facility]) Individual psychotherapy (regime/therapy) 04/07/2020 1 2:00:00 AM EST [facility] ([facility]) Individual psychotherapy (regime/therapy) 04/07/2020 1 2:00:00 AM EST [facility] ([facility]) Individual psychotherapy (regime/therapy) 04/07/2020 1 2:00:00 AM EST [facility] ([facility]) Individual psychotherapy (regime/therapy) 04/07/2020 1 2:00:00 AM EST [facility] ([facility]) Individual psychotherapy (regime/therapy) 04/07/2020 1 2:00:00 AM EST [facility] ([facility]) Evaluation AND/OR management - established patient (procedur e) 04/01/2020 12:00:00 AM EST [facility] ([facility]) Evaluation AND/OR management - established patient (procedur e) 04/01/2020 12:00:00 AM EST [facility] ([facility]) Evaluation AND/OR management - established patient (procedur e) 04/01/2020 12:00:00 AM EST [facility] ([facility] Individual psychotherapy (regime/therapy) 03/12/2020 1 2:00:00 AM EST [employer] ([facility]) Individual psychotherapy (regime/therapy) 03/12/2020 1 2:00:00 AM EST [employer] ([facility]) Individual psychotherapy (regime/therapy) 03/12/2020 1 2:00:00 AM EST [employer] ([facility]) Individual psychotherapy (regime/therapy) 03/12/2020 1 2:00:00 AM EST [employer] ([facility]) Individual psychotherapy (regime/therapy) 03/12/2020 1 2:00:00 AM EST [employer] ([facility]) Individual psychotherapy (regime/therapy) 03/12/2020 1 2:00:00 AM EST [employer] ([facility]) Individual psychotherapy (regime/therapy) 02/19/2020 1 2:00:00 AM EDT [employer] ([facility]) Individual psychotherapy (regime/therapy) 02/19/2020 1 2:00:00 AM EDT [employer] ([facility]) Individual psychotherapy (regime/therapy) 02/19/2020 1 2:00:00 AM EDT [employer] ([facility]) Individual psychotherapy (regime/therapy) 02/19/2020 1 2:00:00 AM [facility] Individual psychotherapy (regime/therapy) 02/19/2020 1 2:00:00 AM EDT [facility]) Individual psychotherapy (regime/therapy) 02/19/2020 1 2:00:00 AM EDT [facility]) Results ID Date Data Source [id number] 10/07/2020 01:07:00 PM EDT [facility] Patient Name: Kellie Portillo DO B: 1995 Sex: F Pt Unit #: [id number] Location:[facility] Provider: Visit Date/Time: 10/07/20 Primary Insurance: R/[facility] Secondary Insurance: Self Pay Intake Vital Signs 3 10/07/20 13:11 Current Height 5 ft 7 in Current Weight 250 lb 2 oz Weight Measurement Method Standing Scale BMI 39.2 BP 138/78 Blood Pressure Location Lt radial Position Sitting Respiration 16 Pulse 111 H Pulse Strength Normal Pulse Source Pulse Oximeter Temp 99.1 F Temp Source Oral Pulse Oximetry (%) 98 Oxygen Delivery Method room air Comment PT HAS ON THICK MASK DENIES S/SX COVID Intake 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 LAST PAP WAS 08/03/18 WNL. SHE STATES THAT SHE HAS NO CONCERNS TODAY. SHE IS DOING MUCH MUCH BETTER ON BC PILLS SHE IS TAKING SPRINTEC. SHE REPORTSTHAT HER PMDD IS SO MUCH MORE IMPROVED NOW. SHE DENIES ANY FAMILY HX OF COLON CANCER . NO INSURANCE ACCOUNT REPRESENTATIVE CANCER IN HER FAMILY. SHE DID GET MADERNA VACCINE X2. PT TEMP 99.1 ORALLY BUT HAS ON THICK MASK. Corporate Licensed Broker Required: No Accompanied by: Self / Same as Patient Allergies No Known Drug Allergies Allergy (Verified 10/03/19 18:09) Is last menstrual period known: Yes Last menstrual period: 06/30/20 Post menopausal: No Patient : No HIV Testing Offer - ages 13-64 Requirement for HIV testing offer been met?: Declines today. Pretest education received and acknowledged Coronavirus Screening Screening Are you currently positive or on isolation for COVID ?: No Do you have any NEW signs of one or more of the following?: no symptoms Do you have NEW signs of at least two of the following?: no symptoms INSURANCE ACCOUNT REPRESENTATIVE History Menstrual History Hx Age of Menarche: 11 Date of Last Menstrual Period: 06/30/20 Menstrual pattern Cycle length: ON ACTIVE TABS Duration of menses: other (MINIMAL ON ACTIVE TABS) Menstrual flow: ABSENT TO MINIMAL Gynecologic pain symptoms: Denies none, dysmenorrhea, chronic non cyclic pelvic pain, dyspareunia, pelvic pressure or other Perimenopause/Menopause Urogynecologic symptoms: Denies continence, leakage with cough/sneeze/laugh, urinary urgency, urinary frequency, post void dribbling or other Contraception control method: pills Previous methods tried?: OCP's Cervical and Vaginal Cytology Ever treated for STI: No Sexual History Sexually active: No Age at first sexual contact: 14 Do you think of yourself as: straight/heterosexual Number of lifetime partners: 10 Condom use: always Sexual concerns: None History History 0 Number of Living Children Hx # Term Pregnancies 0 Hx # Pregnancies 0 Hx Total # of Abortions (Spontaneous Elective) Ectopic pregnancies 0 PFSH Medical History Anxiety COVID-19 vaccine series completed Depression 0 Surgical History History of - surgery History of - surgery Family History Other Hypertension Lupus Social History Does the Patient have a Healthcare Proxy: No Does Patient have a DNR?: No Does Patient have a Living Will?: No adopted: No caregiver/support person: No foster care: No household members: none housing: apartment marital status: Single lives independently: Yes number of children: 0 number of grandchildren: 0 highest education level completed: Bachelor's degree service: No detention: No current occupational status: employed current occupation: [employer] current occupational exposures/hazards: No pets and animals: No leisure activities: other Hx Recent Travel (where): No sexually active: No do you think of yourself as: straight/heterosexual current gender identity: female well-balanced diet: daily caffeine: No high-fat food intake: 0-1 times daily daily servings fruits/ve-4 daily servings of milk/calcium: 2-4 eating out: 1-3 times/week reads food labels: usually or always during the past year weight has: remained stable frequency: daily duration: < 15 minutes/day Smoking Status: Never smoker passive smoking exposure: No alcohol intake: current alcohol intake frequency: holidays/special occasions only substance use type: does not use seatbelt use: always helmet use: Yes drive intox or ride w/ intox courtesy bus driver: No working smoke detector in home: Yes fire extinguisher in home: Yes carbon monox detector in home: No firearms in home: No do you feel safe at home: Yes victim of physical abuse: No victim of emotional abuse: No victim of sexual abuse: No Sickle cell Sickle Cell Screening:: Not indicated Female Reproductive History Menstrual Age of Menarche: 11 Duration of menses: other (MINIMAL ON ACTIVE TABS) Date of last menstrual period: 06/30/20 control method: pills Total pregnancies: 0 Ab induced: 0 Ab spontaneous: 0 Ectopics: 0 HPI Additional HPI HPI Details: 25 Y/O FEMALE HERE FOR ANNUAL EXAM. LAST PAP WAS 08/03/18 WNL. SHE STATES THAT SHE HAS NO CONCERNS TODAY. SHE IS DOING MUCH MUCH BETTER ON BC PILLS SHE IS TAKING SPRINTEC. SHE REPORTS THAT HER PMDD IS SO MUCH MORE IMPROVED NOW. SHE DENIES ANY FAMILY HX OF COLON CANCER . NO INSURANCE ACCOUNT REPRESENTATIVE CANCER IN HER FAMILY. SHE DID GET MODERNA VACCINE X2. Annual INSURANCE ACCOUNT REPRESENTATIVE Exam Menstrual character: other (ABSENT) Gynecologic pain symptoms: Denies none, dysmenorrhea, chronic non cyclic pelvic pain, dyspareunia, pelvic pressure or other Urogynecologic symptoms: Denies continence, leakage with cough/sneeze/laugh, urinary urgency, urinary frequency, post void dribbling or other Review of Systems Const Reports system reviewed and no additional complaints, except as documented and Denies headache(s) Eyes Denies loss of vision ENT Denies headache(s) Card Denies chest pain, Denies syncope, Denies leg edema, Denies lightheadedness, Denies palpitations andDenies dyspnea Resp Denies chest congestion, Denies cough and Denies dyspnea GI Denies abdominal pain, Denies bloating, Denies change in bowel habits and Denies heartburn Genitourinary: Denies post void dribbling, nipple discharge, dyspareunia, dysmenorrhea or urinary urgency Musc Reports system reviewed and no additional complaints, except as documented Skin/Breast Denies breast swelling, Denies breast skin changes, Denies breast pain, Denies breast mass, Denies change in pigmentation, Denies nipple discharge and Denies sores Neuro Denies syncope, Denies headache(s) and Denies loss of vision Psych Denies anxiety and Denies depression Endo Reports system reviewed and no additional complaints, except as documented and Denies palpitations Jose De Jesus/Lymph Denies easy bruising and Denies lymphadenopathy Aller/Immun Reports system reviewed and no additional complaints, except as documented Exam Const General: cooperative and healthy appearing Orientation: alert, awake and oriented x3 Resp Effort Inspection: normal respiratory effort and able to speak in complete sentences GI Inspection: Yes normal to inspection Palpation: soft External Female Exam: normal external appearance and normal appearance of the urethra Urethra: normal appearance of the urethra Speculum Exam - Vagina: normal appearance of the vagina and normal vaginal discharge Speculum Exam - Cervix: normal appearance of the cervix, closed and nulliparous Bimanual Exam- Vagina Uterus: normal bimanual exam, uterine size normal and non-tender Bimanual Exam- Adnexa, other: normal adnexae, no masses and normal Pelvic Support: normal Skin Lesions: no lesions Rashes: no rashes Neuro General: patient alert, patient awake, patient oriented x3 and moves all extremities Extrem General: normal to inspection Psych Appearance: grossly normal and well kempt Speech and Movement: speech and movement normal Assessment Plan Assessment Plan (1) Encounter for Routine Gynecological Examination: Code(s): Z01.419 - Encounter for gynecological examination (general) (routine) without abnormal findings Qualifiers: Gynecological examination findings: abnormal findings ABSENT Qualified Code(s): Z01.419 - Encounter for gynecological examination (general) (routine) without abnormal findings Plan: We discussed that recommendations every for cervical cancer screening every 3 years if under age 30 and reflex to HPV testing if ASCUS. Not due today. Safe sex practices reviewed, careful partner selection and barrier methods encouraged to prevent STI. Continue OCP for contraception. Medications: Discontinued venlafaxine ER Discontinued Reason: Reported during MED REC - Medication is D/C 150 mg PO DAILY 0 caps 0RF Coding Level of Care Code 12727 Well 18-39 (Est) Diagnoses Encounter for Routine Gyne cological Examination Z01.419 Gynecological examination findings: abnormal findings ABSENT <Electronically signed by Gia Hickey DO> 10/20/20 0516 Name Value Range Interpretation Code Description Data Marleny rce(s) Supporting Document(s) ID Date Data Source [id number] 02/12/2020 08:22:00 AM EDT [facility] Patient Name: Kellie Portillo DO B: 1995 Sex: F Pt Unit #: [id number] Location:[facility] Provider: Visit Date/Time: 02/12/20 Primary Insurance: [facility] Secondary Insurance: Self Pay Intake Vital Signs 3 02/12/20 08:22 Current Height 5 ft 7 in Current Weight 263 lb Weight Measurement Method Standing Scale BMI 41.1 BP 140/82 Blood Pressure Location Lt brachial Position Sitting Respiration 18 Pulse 112 H Pulse Strength Normal Pulse Source Pulse Oximeter Temp 98.7 F Temp Source Oral Pulse Oximetry (%) 98 Oxygen Delivery Method room air Intake Visit Reasons: Depression/menstrual related Nurse Note: Patient is here today to talk about depression and anxiety the week before her period. She feels overwhelmed and misses work. She reports that this happens every 3rd week of her pill pack. She reports that she always deals with anxiety and depression but it gets much worse prior to her period. She is trying to get herself in a place where she can finish her degree and work on herself more. She goes to counseling with Behavioral Health. She has been going since 2017. Accompanied by: Self / Same as Patient Is patient in pain?: No Allergies No Known Drug Allergies Allergy (Verified 10/03/19 18:09) Is last menstrual period known: Yes Last menstrual period: 02/07/20 Post menopausal: No Patient : No Vision Wearing glasses?: No Fall Risk History of falls: No Ambulatory Aid:: None Gait/Transferring:: Normal PHQ-2/9 Over the last 2 weeks, how often have you been bothered by any of the following problems? 1. Little interest or pleasure in doing things: more than half the days (Being treated for anxiety) 2. Feeling down, depressed, or hopeless: more than half the days (Being treated for anxiety) Total score: 4 3. Trouble falling or staying asleep, or sleeping too much: nearly every day 4. Feeling tired or having little energy: nearly every day 5. Poor appetite or overeating: nearly every day 6. Feeling bad about yourself - or that you are a failure or have let yourself and your family down:nearly every day 7. Trouble concentrating on things, such as reading the newspaper or watching television: nearly every day 8. Moving or speaking so slowly that other people could have noticed? - Or the opposite - being so fidgety or restless that you have been moving around a lot more than usual: nearly every day (Fidgety) 9. Thoughts that you would be better off or of hurting yourself in some way: not at all Total score: 22 If you checked off any problems, how difficult have these p roblems made it for you to do your work, take care of things at home, or get along with other people?: somewhat difficult Source: Developed by Drs. Jay Jay Huynh, Kady Khan, Garret Patel and colleagues, with an educational tejas from [employer]. HIV Testing Offer - ages 13-64 Requirement for HIV testing offer been met?: Declines today. Pretest education received and acknowledged SBIRT Annual Questionnaire Are you currently in recovery for alcohol or substance use?: No Coronavirus Screening Screening Have you traveled outside of [facility] or [facility] in the last 14 days.: No Has patient experienced coronavirus symptoms: No PFSH Medical History Anxiety Depression Surgical History History of - surgery History of - surgery Family History Other Hypertension Lupus Social History Does the Patient have a Healthcare Proxy: No Does Patient have a DNR?: No Does Patient have a Living Will?: No adopted: No caregiver/support person: No foster care: No household members: none housing: apartment marital status: Single lives independently: Yes number of children: 0 number of grandchildren: 0 highest education level completed: Bachelor's degree service: No detention: No current occupational status: employed current occupation: [employer] current occupational exposures/hazards: No pets and animals: No leisure activities: other Hx Recent Travel (where): No sexually active: No do you think of yourself as: straight/heterosexual current gender identity: female well-balanced diet: daily caffeine: No high-fat food intake: 0-1 times daily daily servings fruits/ve-4 daily servings of milk/calcium: 2-4 eating out: 1-3 times/week reads food labels: usually or always during the past year weight has: remained stable frequency: daily duration: < 15 minutes/day Smoking Status: Never smoker passive smoking exposure: No alcohol intake: current alcohol intake frequency: holidays/special occasions only substance use type: does not use seatbelt use: always helmet use: Yes drive intox or ride w/ intox courtesy bus driver: No working smoke detector in home: Yes fire extinguisher in home: Yes carbon monox detector in home: No firearms in home: No do you feel safe at home: Yes victim of physical abuse: No victim of emotional abuse: No victim of sexual abuse: No Female Reproductive History Menstrual Age of Menarche: 11 Duration of menses: 3-5 days Date of last menstrual period: 02/07/20 control method: pills Total pregnancies: 0 Ab induced: 0 Ab spontaneous: 0 Ectopics: 0 HPI Additional HPI HPI Details: Patient is a 24-year-old G0 here today to discuss PMDD symptoms. She reports she sometimesfeels overwhelmed and misses work at this happens every third week of her pill pack. She reports that she always deals with anxiety and depression but it gets much worse prior to her menses she thinks. 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 She goes to counseling with behavioral health since 2017 has been using Effexor and hydroxyzine for anxiety and depression. Shereports her sister had an IUD she is unsure of which kind but had to have it removed because she washaving issues with that and she is scared of IUD. She has always been on a triphasic contraceptive is currently on tri-linyah. Review of Systems Const Reports system reviewed and no additional complaints, except as documented and Denies headache(s) Eyes Denies loss of vision ENT Denies headache(s) Card Denies chest pain, Denies syncope, Denies leg edema, Denies lightheadedness, Denies palpitations andDenies dyspnea Resp Denies chest congestion, Denies cough and Denies dyspnea GI Denies abdominal pain, Denies bloating, Denies change in bowel habits and Denies heartburn Genitourinary: Denies nipple discharge, dyspareunia, dysmenorrhea, pelvic pain, flank pain, urinary urgency, vaginal discharge or vaginal odor Musc Reports system reviewed and no additional complaints, except as documented Skin/Breast Denies nipple discharge Neuro Denies syncope, Denies headache(s) and Denies loss of vision Psych Denies depression Endo Reports system reviewed and no additional complaints, except as documented and Denies palpitations Jose De Jesus/Lymph Denies easy bruising and Denies lymphadenopathy Exam Const General: cooperative and healthy appearing Nutritional Appearance: well nourished and obese Orientation: alert, awake and oriented x3 Resp Effort Inspection: normal respiratory effort and able to speak in complete sentences GI Inspection: Yes normal to inspection Speculum Exam - Vagina: erythematous, lesion and mass Skin Lesions: no lesions Rashes: no rashes Neuro General: patient alert, patient awake, patient oriented x3 and moves all extremities Extrem General: normal to inspection Psych Appearance: grossly normal and well kempt Mental Status: mental status grossly normal Speech and Movement: speech and movement normal Affect: normal affect Attitude: cooperative Quality Reporting Depression/Bipolar (159/160/161/169/177) Total score: 22 Assessment Plan Assessment Plan (1) Contraception management: Status: Acute Code(s): Z30.9 - Encounter for contraceptive management, unspecified SNOMED Code(s): 067227424 Category: Medical (2) PMDD (premenstrual dysphoric disorder): Status: Acute Comment: Switch from triphasic to monophasic and use continuous or extended dosing pattern. Offered Progesterone IUD for period suppression and declined at this time. She also was counseled about breakthrough bleeding potential using this dosing pattern. Not currently sexually active. Code(s): F32.81 - Premenstrual dysphoric disorder SNOMED Code(s): 207813 Category: Medical Orders Other Medications: New: norgestimate-ethinyl estradiol 0.25-35 mg-mcg ([place]) Skip placebo week for continuous use 1 tab PO QDAY 84 tabs 4RF PMDD Discontinued: norgestimate-ethinyl estradiol 0.18/0.215/0.25 mg-35 mcg (28) ([facility]) Discontinued Reason: Order 1 tab PO DAILY 1 tab 11RF Z78.9 <Electronically signed by Gia Hickey DO> 02/12/20 0934 Name Value Range Interpretation Code Description Data Marleny rce(s) Supporting Document(s) Procedure Social History No Information
== END 2021-04-07 20:58 | disposition home or self-care (01) ==
LOC: M ED 18:43
DX: F33.0 Major depressive disorder, recurrent, mild (principal); Z79.899 Other long term (current) drug therapy; Z79.3 Long term (current) use of hormonal contraceptives